=== PATIENT | female | born 1980 | race Caucasian/White ===

== ENCOUNTER 2019-02-27 17:28 | Emergency (ER) | payer SELFPAY ==
[~2019-02-27] VITALS: Ht 162.6 cm; Wt 50.0 kg
[~2019-02-27 17:28] MED LIST: AMOX/K CLAV875 M1 PO; AMOXICILLIN500 MG PO; AUGMENTIN875TAB PO; CIPROFLOXACN500 MG PO; DIFLUCAN150 MG PO; DOXYCYCL HYC100 MG PO; FLEXERIL10 MG PO; FLUOCINONIDE0.051 TOP; FLUOCINONIDE0.054 TOP; FOLITAB OR; KEFLEX500 MG PO; LORTAB 7.5 PO; MEDDOSEPAK PO; METRONIDAZOLE0.75 % EX; METRONIDAZOLE0.751 TOP; NAPROSYN500 MG PO; OXAZEPAM10 MG OR; PYRIDIUM200 MG PO; SPRINTEC 2828 DAY PO; TRAMADOL HCL50 MG PO; ZYRTEC-D ALG PO
[2019-02-27] MEDS ORDERED: VOLTAREN - GENE75 MG PO (18:12)
[2019-02-27 18:15] VITALS: BP 127/80
== END 2019-02-27 18:15 | disposition home or self-care (01) | DRG 558 ==
LOC: ED 17:28
DX: M77.9 Enthesopathy, unspecified (principal)

== ENCOUNTER 2019-08-14 | Emergency (ER) | payer SELFPAY ==
[~2019-08-14] MED LIST changes: +VOLTAREN - GENE75 MG PO
[2019-08-14 22:15] LABS: URINE BILIRUBIN - DIPSTICK NEGATIVE (NEGATIVE); URINE BLOOD DIPSTICK TRACE-INTACT (NEGATIVE); URINE COLOR YELLOW; URINE GLUCOSE - DIPSTICK NEGATIVE (NEGATIVE); URINE KETONE NEGATIVE (NEGATIVE); URINE NITRITE - DIPSTICK NEGATIVE (Negative); URINE PROTEIN - DIPSTICK TRACE mg/dL (NEG-TRACE); URINE SPECIFIC GRAVITY <=1.005
[2019-08-14 22:16] LABS: URINE LEUK ESTERASE MODERATE (NEGATIVE)
[2019-08-14 22:24] LABS: URINE SQUAMOUS EPITHELIAL CELL FEW EPI/hpf (0-FEW); URINE WBC 20-50 WBC/hpf (0-5)
[2019-08-14] MEDS ORDERED: BACTRIM DS1 TAB PO (22:26)
== END 2019-08-14 22:40 | disposition home or self-care (01) | DRG 690 ==
DX: N39.0 Urinary tract infection, site not specified (principal); F17.210 Nicotine dependence, cigarettes, uncomplicated